=== PATIENT | female | born 1950 | race Caucasian/White ===

== ENCOUNTER 2022-03-17 10:52 | Outpatient (CLI) | payer OTHER | END 2022-03-17 10:53 | disposition home or self-care (01) | LOC: CSHMRI 10:52 | PROVIDERS: ATTEND Family Medicine | DX: R41.3 Other amnesia (principal); I67.89 Other cerebrovascular disease; G31.9 Degenerative disease of nervous system, unspecified | CPT/HCPCS: 70551 ==

== ENCOUNTER 2022-04-25 15:39 | Outpatient (CLI) | payer OTHER | END 2022-04-25 15:40 | disposition home or self-care (01) | LOC: CSHRAD 15:39 | PROVIDERS: ATTEND Registered Nurse Community Health | DX: M54.41 Lumbago with sciatica, right side (principal); M47.816 Spondylosis without myelopathy or radiculopathy, lumbar region | CPT/HCPCS: 72100 ==